=== PATIENT | female | born 1990 | race Caucasian/White ===

== ENCOUNTER 2020-12-25 17:17 | Emergency (ER) | payer OTHER ==
[~2020-12-25] VITALS: Ht 167.6 cm; Wt 79.8 kg
[2020-12-25 17:29] VITALS: BP 136/82
[2020-12-25 19:19] LABS: URINE HCG NEGATIVE (NEG)
[2020-12-25] MEDS ORDERED: LEVONORGESTREL 1.5 MG (Plan B One-Step) TABLET PO (20:00)
== END 2020-12-25 19:50 | disposition home or self-care (01) ==
LOC: EEVIPCON 17:18 → ER 17:18
DX: T74.21XA Adult sexual abuse, confirmed, initial encounter (principal)
CPT/HCPCS: 81025; 99283; 99284